=== PATIENT | male | born 1950 | race Caucasian/White ===

== ENCOUNTER 2019-06-24 04:54 | Inpatient (IN) ==
[2019-06-11 15:54] LABS: Appearance,Urine CLEAR; Bilirubin,Urine NEG (NEG); Color,Urine YELLOW; Glucose,Urine (UA) NEGATIVE (NEG); Ketones,Urine NEG (NEG); Leukocyte Esterase,Urine NEG /uL (NEG); Nitrate,Urine NEG (NEG); Protein,Urine NEG (NEG); Specific Gravity,Urine 1.014 (1.000-1.035); Urine Blood NEG mg/dL (<0.03); Urobilinogen,Urine NEG (NEG)
[2019-06-11 16:29] LABS: Basophils # (Auto) 0 K/mcL (0.0-0.3); Basophils % (Auto) 0.3 % (0.0-2.0); Eosinophils # (Auto) 0.1 K/mcL (0.0-0.7); Granulocytes % (Auto) 60.9 % (38.0-78.0); Hematocrit 43.9 % (41.0-55.0); Hemoglobin 14.9 g/dL (13.5-16.5); Lymphocytes # (Auto) 1.9 K/mcL (1.5-4.8); Lymphocytes % (Auto) 31.4 % (15.5-49.0); Mean Platelet Volume 7.7 fL (7.4-10.4); Monocytes # (Auto) 0.3 K/mcL (0.1-0.9); Monocytes % (Auto) 5.4 % (1.0-12.0); Platelet Count 199 K/mcL (140-440); RBC 4.72 M/mcL (4.50-5.90); Red Cell Distribution Width 12.7 % (11.5-14.5)
[2019-06-11 16:42] LABS: Blood Urea Nitrogen 11 mg/dl (8-23); Calcium 9.6 mg/dl (8.6-10.4); Carbon Dioxide 24 mmol/L (22-30); Chloride 104 mmol/L (96-108); Glomerular Filtration Rate 92; Glucose 89 mg/dL (70-105)
[2019-06-11 16:54] LABS: Estimated Average Glucose(eAG) 103 mg/dL; Hemoglobin A1C 5.2 % HGB (4.0-6.0)
[2019-06-24] MEDS ORDERED: SCOPOLAMINE 1 PATCH PATCH TOPICAL PRN (05:00)
[2019-06-24] MEDS ORDERED: IPRATROPIUM/ALBUTEROL 3 ML AMPUL.NEB NEB PRN ×2 (05:00→08:31)
[2019-06-24] MEDS ORDERED: 0.9 % SODIUM CHLORIDE 9 ML, KETOROLAC 30 MG, ROPIVACAINE HCL/PF 49.5 ML, EPINEPHrine 0.... IJ SCH (06:00)
[2019-06-24] MEDS ORDERED: oxyCODONE 10 MG TAB.ER.12H PO SCH (06:00)
[2019-06-24] MEDS ORDERED: PREGABALIN 75 MG CAPSULE PO SCH (06:00)
[2019-06-24] MEDS ORDERED: CELECOXIB 200 MG CAPSULE PO SCH (06:00)
[2019-06-24] MEDS ORDERED: ceFAZolin 2 GM in DEXTROSE 5% IN WATER 50 ML IV SCH (06:00)
[2019-06-24] MEDS ORDERED: ONDANSETRON 4 MG/2 ML VIAL ONE (07:35)
[2019-06-24] MEDS ORDERED: GLYCOPYRROLATE 0.2 MG/ML VIAL IV ONE (07:35)
[2019-06-24] MEDS ORDERED: PROPOFOL 200 MG/20 ML VIAL IV ONE (07:35)
[2019-06-24] MEDS ORDERED: MIDAZOLAM 5 MG/5 ML VIAL ONE (07:35)
[2019-06-24] MEDS ORDERED: PHENYLEPHRINE 10 MG/ML VIAL ONE (07:35)
[2019-06-24] MEDS ORDERED: fentaNYL 100 MCG/2 ML VIAL IV ONE (07:35)
[2019-06-24] MEDS ORDERED: DEXAMETHASONE 10 MG/ML VIAL ONE (07:35)
[2019-06-24] MEDS ORDERED: ePHEDrine 50 MG/ML AMPUL IV ONE (07:35)
[2019-06-24] MEDS ORDERED: LIDOCAINE HCL/PF 100 MG/5 ML SYRINGE IV ONE (07:35)
[2019-06-24] MEDS ORDERED: HYDROmorphone 2 MG/ML VIAL IV PRN ×2 (08:31→09:27)
[2019-06-24] MEDS ORDERED: MEPERIDINE 25 MG/ML SYRINGE IV PRN (08:31)
[2019-06-24] MEDS ORDERED: ONDANSETRON 4 MG/2 ML VIAL IV PRN ×2 (08:31→09:27)
[2019-06-24] MEDS ORDERED: fentaNYL 100 MCG/2 ML VIAL IV PRN (08:31)
[2019-06-24] MEDS ORDERED: PROMETHAZINE 25 MG/ML VIAL IV PRN (08:31)
[2019-06-24] MEDS ORDERED: METOPROLOL TARTRATE 5 MG/5 ML VIAL IV PRN (08:31)
[2019-06-24] MEDS ORDERED: ePHEDrine 50 MG/ML AMPUL IV PRN (08:31)
[2019-06-24] MEDS ORDERED: FLUMAZENIL 0.1 MG/ML ML IV PRN (08:31)
[2019-06-24] MEDS ORDERED: ATROPINE SULFATE 0.4 MG/ML VIAL IV PRN (08:31)
[2019-06-24] MEDS ORDERED: METHOCARBAMOL 1,000 MG/10 ML VIAL IV PRN (08:31)
[2019-06-24] MEDS ORDERED: ACETAMINOPHEN 1,000 MG/100 ML BOTTLE IV ONE (08:31)
[2019-06-24] MEDS ORDERED: diphenhydrAMINE 50 MG/ML VIAL IV PRN (08:31)
[2019-06-24] MEDS ORDERED: NALOXONE HCL 0.4 MG/ML VIAL IV PRN (08:31)
[2019-06-24] MEDS ORDERED: LACTATED RINGERS 1,000 ML IV SCH (08:45)
[2019-06-24] MEDS ORDERED: TRANEXAMIC ACID 1,000 MG/10 ML VIAL IV ONE (09:27)
[2019-06-24] MEDS ORDERED: BENZOCAINE/MENTHOL 1 LOZENGE PO PRN (09:27)
[2019-06-24] MEDS ORDERED: BISACODYL 10 MG SUPP.RECT PR PRN (09:27)
[2019-06-24] MEDS ORDERED: MAGNESIUM HYDROXIDE 30 ML ORAL.SUSP PO PRN (09:27)
[2019-06-24] MEDS ORDERED: FLEETS ADULT ENEMA PR PRN (09:27)
[2019-06-24] MEDS ORDERED: POLYETHYLENE GLYCOL 3350 17 GM PACKET PO PRN (09:27)
--- NOTE | 2019-06-24 09:27 | Brief Operative Note ---
Date of procedure: 06/24/19 Pre-op diagnosis: R knee severe DJD Post-op diagnosis: same Procedure: Right robotic assisted total knee arthroplasty Grafts/Implants: Yes (Giovanni Triathlon CR 6 femur, 6 tibia, 10mm insert, 39 patella) Anesthesia: spinal, GLMA Findings: multicompartment arthritis Complications: none Surgeon: Olu Espinosa Players Assistant: Crispin Castle Estimated blood loss (cc): 30 Specimens Removed/Pathology: none sent Condition: stable Disposition: PACU
[2019-06-24] MEDS ORDERED: ACETAMINOPHEN 500 MG TABLET PO PRN (09:30)
[2019-06-24] MEDS ORDERED: traMADol 50 MG TABLET PO PRN (09:30)
--- NOTE | 2019-06-24 10:14 | XRay Report ---
HISTORY: Postop right knee replacement FINDINGS: There is a well-positioned right total knee prosthesis. No fracture is present. IMPRESSION: Well-positioned knee prosthesis Interpreted and Authenticated by: Chris Long 06/24/19
--- NOTE | 2019-06-24 10:47 | Operative Note ---
DATE OF OPERATION: 06/24/2019 PREOPERATIVE DIAGNOSIS: Right knee severe multi-compartment osteoarthritis. POSTOPERATIVE DIAGNOSIS: Right knee severe multi-compartment osteoarthritis. PROCEDURE PERFORMED: Right robotic-assisted total knee arthroplasty placing a Giovanni Triathlon size 6 cruciate retaining femoral component, size 6 tibial baseplate, a 10 mm X3 tibial insert with a 39 mm patellar button. SURGEON: Olu Espinosa M.D. BRINE TANK SEPARATOR OPERATOR: Porfirio Castle PA-C. The PA's assistance was required for the safe and efficient completion of the entire case. This provider's expertise and technical skill were required throughout the case. The PA assisted with preoperative coordination, intraoperative retraction, wound closure, dressing and splint application, as well as postoperative documentation and care coordination. ANESTHESIA: Spinal plus general. DRAINS: None. SPECIMENS: Bone cuts which were discarded. BLOOD LOSS: 30 mL. COMPLICATIONS: None. POSTOPERATIVE CONDITION: Stable. INDICATIONS FOR SURGERY: This is a 69-year-old male who has had longstanding right knee pain. Radiographs showed advanced multi-compartment arthritis. FINDINGS AT SURGERY: Severe arthritis. Post implantation showed good limb alignment, patellar tracking, and joint stability. PROCEDURE IN DETAIL: The patient had been seen preoperatively. Informed consent had been obtained after discussion of risks and benefits of surgery. Risks including, but not limited to, bleeding; infection, possibly requiring implant removal and prolonged IV antibiotics; injury to surrounding structures; anesthetic risks; incomplete or no resolution of symptoms; stiffness; swelling; pain; instability; clunking; DVT and pulmonary embolus risks; and the possibility of needing further revision joint surgery. He understood these risks and wished to proceed. Correct operative site was marked and then patient received spinal anesthesia. He was then taken to the operating room and LMA general given. The right lower extremity was carefully prepped and draped in normal sterile fashion, and a time-out was performed verifying patient name, operative site, and plan. Esmarch was used to exsanguinate the extremity, and tourniquet was inflated to 300 mmHg. Midline incision was made with a scalpel through skin and subcutaneous tissue. Irrisept was irrigated. There was some suture material remaining from his previous surgery, and this was removed with the rongeur. We then made a medial parapatellar arthrotomy. Subperiosteal exposure was done of the anterior medial tibia. We then irrigated with Irrisept. We placed our femoral and tibial checkpoints. Two stab incisions were made over the femur and two over the tibia and bicortical pins were placed and the arrays were connected. We then removed anterior horns of the menisci and transected the ACL. Retropatellar fat pad was removed, and we freehand resected the patella. Pre-resection measured 28 mm. Post-resection was around 16 mm. We placed a cut protector. We then did our hip center of rotation check. The green probe was used to identify medial and lateral malleoli and then double-checks of our checkpoints. We then used the blue probe to do our mapping. A rongeur was then used to remove osteophytes, and then we checked our flexion-extension gaps with the spoons. We ended up placing two degrees of varus in the tibia, 1 extra degree of varus in the femur, and then an extra degree of external rotation. This gave us 17 mm gaps throughout, except for lateral and extension. We then checked our patellar tracking, which looked good, so we went ahead and then used the robotic assistance to make our bone cuts. Once this was completed, we sized the tibia to a 6 and externally rotated it as bone coverage would allow. We then pinned the tibial trial baseplate into place and then prepared with the boss reamer and keel punch. A keeled tibial trial was then placed and then the femur was elevated. Curved osteotome was used to remove posterior osteophytes, as well as a loose body. We then placed our femoral trial, lateralized as flush with the cortex as possible. This was pinned into place and peg holes were drilled. We then placed a 9 insert trial and the knee was taken into extension. We are about 2 degrees short of full just at rest. We then prepared the patella using a 39. We drilled the holes and then placed a patellar trial. A lateral facetectomy was performed, and then we tried our patellar tracking through range of motion. There was no tilt or subluxation, so we went ahead and removed trial implants. Definitive implants were opened except for the tibial insert. Antibiotic cement was mixed. We irrigated the joint with Irrisept, after a minute copiously pulse lavaged with saline, and then the CO2 gun was used to clean and dry the cancellous bone surfaces. I then cemented the tibia. Excess cement was removed. We then cemented the femur and excess cement removed, and then a 9 insert trial was placed, and the knee was taken into extension, and the patellar button was then cemented. After all excess cement was removed, we removed our femoral and tibial checkpoints. We filled the joint with Irrisept. We checked our extension. This was now down to about 2 degrees short of full, so we went ahead and removed our arrays and pins. I injected the joint with pain cocktail into the pericapsular and subcutaneous tissues. Once the cement had fully hardened, we flexed the knee up and did final removal with the osteotome of any excess cement. We then removed the insert trial and injected pain cocktail in the posteromedial capsule. I irrigated the tray with Irrisept and then chose a 10 insert since we were down to 2 degrees short of full. We then impacted the [address]. The knee was taken through range of motion and was very stable yet still obtained near full extension, so I went ahead and filled the joint with Irrisept, and after a minute pulse lavaged with saline. The knee was then taken into about 45 degrees of flexion. Interrupted #2 FiberWire [id number] were used around the superior quadrant of the patella, interrupted #1 Vicryl [id number] around the inferior quadrant. Running #1 Vicryl was used for patellar tendon and quad tendon. Final Irrisept irrigation was done, after a minute final pulse lavage with saline, and then 2-0 Monocryl was used for subcutaneous and vikash for skin. Xeroform and sterile dressing were applied. Tourniquet was released. The patient was awakened, extubated, and transferred to recovery in stable condition. JOHNATHAN:benita Job ID: [id number] Doc ID: [id number] Olu Espinosa MD
[2019-06-24] MEDS: 0.9 % SODIUM CHLORIDE 1,000 ML IV SCH ×2 (10:48→20:49)
[2019-06-24] MEDS: HYDROcodone/APAP 10/325MG TABLET PO PRN ×3 (12:59→22:34)
[2019-06-24] MEDS: KETOROLAC 15 MG/ML VIAL IV SCH ×3 (13:00→23:35)
[2019-06-24] MEDS: 0.9 % SODIUM CHLORIDE 10 ML SYRINGE IV SCH ×2 (13:48→20:51)
[2019-06-24] MEDS: ceFAZolin 1 GM VIAL IV SCH ×2 (15:09→23:35)
[2019-06-24] MEDS: DOCUSATE SODIUM 100 MG CAPSULE PO SCH (20:50)
[2019-06-24] MEDS: ASPIRIN 81 MG TAB.CHEW PO SCH (20:50)
[2019-06-24] MEDS ORDERED: SENNOSIDES 1 TABLET PO SCH (21:00)
[2019-06-25] MEDS: HYDROcodone/APAP 10/325MG TABLET PO PRN ×2 (04:49→11:41)
[2019-06-25] MEDS: 0.9 % SODIUM CHLORIDE 10 ML SYRINGE IV SCH (05:52)
[2019-06-25] MEDS: KETOROLAC 15 MG/ML VIAL IV SCH ×2 (05:52→11:40)
[2019-06-25] MEDS: 0.9 % SODIUM CHLORIDE 1,000 ML IV SCH (05:53)
--- NOTE | 2019-06-25 07:33 | Discharge Summary ---
Providers - Providers Patient information: Note initiated : 06/25/19 at 7:29 am Service Date, if different from initiated Date: [] Patient: Abimael Bhatt 69 y/o M admitted on 06/24/19 for Right Total Knee Arthroplasty Aryan . Chief Complaint: [] Discharge date: 06/25/19 Hospitalization Hospital Course: Pt was admitted for a R TKA. Pt admitted on the day of procedure. Pt transferred to the floor for IV pain meds, IV abx and PT. Pt discharged to home on post-op day1. Will f/u in 2weeks. Will take ASA for DVT prophylaxis. Discharge diagnosis: R knee OA Exam - Exam Clean and dry: Yes Weight bearing status: as tolerated Ortho Discharge - TKA - Patient Instructions Diet: Regular Diet Activity: activity as tolerated Total Knee Protocol: For Total Knee: Start ROM LU with stationary bike or rocking chair. Work on gaining full extension of knee. Posterior dislocation precautions provided. Hip abductor strengthening and gait training instructions provided. Apply Cryocuff as instructed. Dressing Care: May shower in 2 days - Follow Up Plan Follow Up Appointments: Crispin Castle PA-C [Physician Link Trainer Mechanic] - 07/09/19 11:20 am Disposition: Home, Self-Care Prognosis: Good Rehab Potential: Good Overall status at discharge: patient is back to baseline - Orders For Discharge Prescriptions: Aspirin 81 mg PO BID #30 tab.chew Transmission Status: Pending to [facility] HYDROcodone/APAP 10/325MG [Jewell 10-325Mg] 1 - 2 tab PO Q4HP PRN #90 tab PRN Reason: Pain Level 3-6 Prescription Printed Pending Studies Resuscitation Status Full Code Diet Consistent Carbohydrate Diet Start SatJun 24 928 Hydrocodone Bitart/Acetaminophen (Jewell 10/325mg) 0 tab PO Q4HP PRN PRN Reason: PAIN LEVEL 3-6 Last Admin: 06/25/19 04:49 Dose: 1 tab Documented by: Admin: 06/24/19 22:34 Dose: 1 tab Documented by: Admin: 06/24/19 18:10 Dose: 1 tab Documented by: [email or web address] Admin: 06/24/19 12:59 Dose: 1 tab Documented by: [email or web address] Aspirin (Aspirin) 81 mg PO BID BRIAN Last Admin: 06/24/19 20:50 Dose: 81 mg Documented by: ADILENE Docusate Sodium (Colace) 100 mg PO BID [facility] Last Admin: 06/24/19 20:50 Dose: 100 mg Documented by: ADILENE Sodium Chloride (Sodium Chloride 0.9%) 1,000 mls @ 100 mls/hr IV .Q10H [facility] Last Admin: 06/25/19 05:53 Dose: Not Given Documented by: Infusion: 06/25/19 05:00 Dose: 0 mls/hr Documented by: Admin: 06/24/19 20:49 Dose: 100 mls/hr Documented by: Infusion: 06/24/19 20:48 Dose: 100 mls/hr Documented by: Admin: 06/24/19 10:48 Dose: 100 mls/hr Documented by: CRISTOFER Ketorolac Tromethamine (Toradol) 15 mg IV Q6 [facility] Stop: 06/26/19 06:01 Last Admin: 06/25/19 05:52 Dose: 15 mg Documented by: Admin: 06/24/19 23:35 Dose: 15 mg Documented by: Admin: 06/24/19 18:11 Dose: 15 mg Documented by: Admin: 06/24/19 13:00 Dose: 15 mg Documented by: CRISTOFER Ondansetron HCl (Zofran) 4 mg IV Q4HP PRN PRN Reason: Nausea And Vomiting Last Admin: 06/24/19 10:47 Dose: 4 mg Documented by: CRISTOFER Senna (Senokot) 2 tab PO HS [facility] Last Admin: 06/24/19 20:50 Dose: 2 tab Documented by: ADILENE Sodium Chloride (Saline Flush) 10 ml IV Q8 [facility] Last Admin: 06/25/19 05:52 Dose: 10 ml Documented by: Admin: 06/24/19 20:51 Dose: Not Given Documented by: Admin: 06/24/19 13:48 Dose: Not Given Documented by: ASMHermes Shift Summary 06/25/19 05:21 Shift Summary by Makayla Langford Pt is A&Ox4. Up to BR w/SBA & FWW. BP at midnight was 98/61. At 0430 this AM, BP was 141/82. Other VSS on RA. Pt ambulated to/from BR x3, but did not ambulate in the hallway this shift (did ambulate in [place]ers during day shift). Pt is voiding well. Voided 650cc at 0440, with a PVR of ~90cc. Pt received Jewell 10 mg (1 tab) x2 and scheduled Toradol for pain. Dressing to right knee CDI. IV to left hand, SL. Denies nausea. Denies numbness/tingling. Will update with verbal report. Initialized on 06/25/19 05:21 - END OF NOTE
[2019-06-25] MEDS: ASPIRIN 81 MG TAB.CHEW PO SCH (08:10)
[2019-06-25] MEDS: DOCUSATE SODIUM 100 MG CAPSULE PO SCH (08:11)
[2019-06-25] MEDS ORDERED: LISINOPRIL 20 MG TABLET PO SCH (09:00)
[2019-06-25] MEDS ORDERED: TESTOSTERONE TD SCH (09:00)
== END 2019-06-25 12:30 | disposition home or self-care (01) | DRG 470 ==
LOC: MEDSUR 04:54
PROVIDERS: ADMIT Orthopaedic Surgery; ATTEND Orthopaedic Surgery